=== PATIENT | female | born 1940 | race Caucasian/White ===

== ENCOUNTER 2016-08-30 07:24 | Observation (INO) | payer OTHER ==
[~2016-08-30] VITALS: Ht 152.4 cm; Wt 69.2 kg
[~2016-08-30 07:24] MED LIST: CARTIA XT240 MG PO; COMBIGAN O20 DROP/5 BOTH EYES; ULTRAM50 MG PO
[2016-08-30 07:54] LABS: MCHC 31.2 G/DL (30.0-36.0); MCV 92.9 FL (83-99); MEAN PLAT.VOLUME 10.4 uM^3 (9.5-12.4); PLATELET COUNT 246 K/uL (156-360); RBC DIS.WIDTH-CV 16.3 % (11.8-14.6); RBC DIS.WIDTH-SD 56.1 % (39-53); RED BLOOD COUNT 4.52 M/uL (3.80-5.20); WHITE BLOOD COUNT 5.2 K/uL (4.1-10.2)
[2016-08-30 08:26] LABS: TROP-I INTERPRETATION NEGATIVE; TROPONIN-I < 0.01 ng/mL (0.0-0.30)
[2016-08-30 08:29] LABS: CHLORIDE 108 mEq/L (99-109); POTASSIUM 4.5 mEq/L (3.7-5.4); SODIUM 141 mEq/L (136-147)
[2016-08-30 08:31] LABS: GLUCOSE 102 mg/dL (70-99)
[2016-08-30 08:32] LABS: ANION GAP 10 MEQ/L (2-14)
[2016-08-30 08:34] LABS: GFR ESTIMATE (CALCULATED) > 59 mL/min/
[2016-08-30 08:35] LABS: UREA NITROGEN (BUN) 17 mg/dL (9-23)
[2016-08-30 08:53] LABS: ADD MIUA? YES; BILIRUBIN NEGATIVE; BLOOD NEGATIVE; COLOR YELLOW ((YELLOW)); GLUCOSE (STRIP) NEGATIVE; KETONES NEGATIVE; LEUKOCYTES NEGATIVE; NITRITE NEGATIVE; PROTEIN (STRIP) 30; SPECIFIC GRAVITY 1.018 (1.000-1.030); UROBILINOGEN 0.2 MG/DL (0.2-1.0)
[2016-08-30 09:26] LABS: BACTERIA NONE SEEN /HPF; EPITHELIAL CELLS 1+ /HPF; MUCUS TRACE /LPF; RED BLOOD CELLS 0-5 /HPF (0-5); UCUL ADDED? NO; UNCLASSIFIED CRYSTALS 2+ /HPF; WHITE BLOOD CELLS NONE SEEN /HPF (0-5)
[2016-08-30 12:45] LABS: Estimated Average Glucose 120 mg/dL (70-123); HEMOGLOBIN A1c (GLYCOHEMOGLOB) 5.8 % HGB (Below 5.7)
[2016-08-30 14:06] VITALS: BP 132/60
[2016-08-30 18:30] LABS: TROP-I INTERPRETATION NEGATIVE; TROPONIN-I < 0.01 ng/mL (0.0-0.30)
[2016-08-30 19:45] VITALS: BP 128/59
[2016-08-31 00:45] VITALS: BP 113/75
[2016-08-31 01:27] LABS: TROP-I INTERPRETATION NEGATIVE; TROPONIN-I < 0.01 ng/mL (0.0-0.30)
[2016-08-31 04:30] VITALS: BP 114/62
[2016-08-31 05:25] LABS: HEMATOCRIT 37.7 % (36.0-46.0); MCH 28.7 PG (29.0-34.0); MCHC 30.8 G/DL (30.0-36.0); MCV 93.3 FL (83-99); MEAN PLAT.VOLUME 10.9 uM^3 (9.5-12.4); PLATELET COUNT 222 K/uL (156-360); RBC DIS.WIDTH-CV 16.6 % (11.8-14.6); RBC DIS.WIDTH-SD 57.1 % (39-53); RED BLOOD COUNT 4.04 M/uL (3.80-5.20); WHITE BLOOD COUNT 5.4 K/uL (4.1-10.2)
[2016-08-31 05:50] LABS: ALKALINE PHOSPHATASE 73 IU/L (3-129); ANION GAP 7 MEQ/L (2-14); CHLORIDE 105 MEQ/L (99-109); GFR ESTIMATE (CALCULATED) > 59 mL/min/; GLUCOSE 94 mg/dL (70-99); HDL CHOLESTEROL 46 MG/DL (Desirable>=50); LDL CHOLESTEROL 65 mg/dL (Desirable<100); NON-HDL CHOLESTEROL 86 mg/dL (Desirable<160); POTASSIUM 4.4 MEQ/L (3.7-5.4); SAMPLE HEMOLYSIS CHECK 0; SAMPLE ICTERIC CHECK 0; SAMPLE LIPEMIA CHECK 0; SODIUM 139 MEQ/L (136-147); TOTAL BILIRUBIN 0.3 MG/DL (0.0-1.0); TOTAL CHOLESTEROL 132 mg/dL (Desirable<200); TRIGLYCERIDES 105 MG/DL (Normal: <150); UREA NITROGEN (BUN) 24 mg/dL (9-23)
[2016-08-31 09:20] VITALS: BP 142/68
== END 2016-08-31 10:02 | disposition home or self-care (01) ==
LOC: EME 07:24 → EDOF 11:03 → 5WEST 11:03
PROVIDERS: Emergency Medicine; Internal Medicine
DX: R07.89 Other chest pain (principal); I10 Essential (primary) hypertension; Z85.038 Personal history of other malignant neoplasm of large intestine; F32.9 Major depressive disorder, single episode, unspecified; F41.9 Anxiety disorder, unspecified; R42 Dizziness and giddiness; R51 Headache
CPT/HCPCS: 71010; 80048; 80053; 80061; 81003; 83036; 84443; 84484; 85027; 93005; 99281; 99285; G0378; J1650

== ENCOUNTER 2016-09-16 22:32 | Emergency (ER) | payer OTHER ==
[~2016-09-16] VITALS: Ht 152.4 cm; Wt 69.0 kg
[2016-09-16 23:39] VITALS: BP 170/75
== END 2016-09-16 23:40 | disposition home or self-care (01) ==
LOC: EME → EDBD 22:32 → EME 22:32
DX: F32.9 Major depressive disorder, single episode, unspecified (principal); F43.21 Adjustment disorder with depressed mood; I10 Essential (primary) hypertension; Z87.891 Personal history of nicotine dependence
CPT/HCPCS: 80048; 81003; 85027; 90837; 99281; 99285; G0480